=== PATIENT | female | born 1985 | race Caucasian/White ===

== ENCOUNTER 2023-11-24 18:49 | Inpatient (IN) | payer MEDICAID ==
[~2023-11-24] VITALS: Ht 172.7 cm; Wt 2396.3 kg
[2023-11-24] MEDS: ONDANSETRON HCL 4MG TABLET PO ONE (21:15)
[2023-11-24 21:43] LABS: BASOPHILS % 0.5 % (0.0-2.0); HEMOGLOBIN. 12.3 g/dL (12.0-16.0); LYMPHOCYTES % 38.9 % (20.0-50.0); MEAN CORPUSCULAR HEMOGLOBIN 31.4 pg (28.0-32.0); MEAN CORPUSCULAR HGB CONC 33.2 g/dL (31.0-37.0); MEAN CORPUSCULAR VOLUME 94.7 fL (81.0-99.0); MEAN PLATELET VOLUME 8.9 fl (7.4-10.4); MONOCYTES % 6.5 % (2.0-8.0); NEUTROPHILS % 53.1 % (40.0-76.0); PLATELET 232 x1000/uL (130-400); RED BLOOD CELL COUNT 3.91 mill/uL (4.2-5.4); RED CELL DISTRIBUTION WIDTH 14.8 % (11.6-14.6); WHITE BLOOD COUNT 6.5 x1000/uL (4.5-11.0)
[2023-11-24 21:49] LABS: CHLORIDE 103 mEq/L (98-107); SODIUM 137 mEq/L (136-145)
[2023-11-24 21:50] LABS: CALCIUM 9.4 mg/dL (8.7-10.4); CARBON DIOXIDE 29 mEq/L (21-32)
[2023-11-24 21:55] LABS: CREATININE 0.8 mg/dL (0.6-1.0); GLUCOSE 141 mg/dL (70-105); HCG SCREEN NEGATIVE; UREA NITROGEN BLOOD 8 mg/dL (9-23)
[2023-11-24 21:57] LABS: ACETAMINOPHEN < 2 ug/mL (10-30); ALANINE AMINOTRANSFERASE 26 IU/L (10-49); ALBUMIN 4.4 g/dL (3.2-4.8); ASPARTATE AMINOTRANSFERASE 43 IU/L (<34); BILIRUBIN DIRECT 0.2 mg/dL (<=3.0); BILIRUBIN TOTAL 0.8 mg/dL (0.1-1.0); PROTEIN TOTAL 7.5 g/dL (6.0-8.3)
[2023-11-24] MEDS: ARIPIPRAZOLE 5MG TABLET PO ONE (22:30)
[2023-11-25 11:21] LABS: CLARITY URINE TURBID (CLEAR); COLOR URINE DARK YELLOW (YELLOW); GLUCOSE URINE NEGATIVE (NEGATIVE); KETONES URINE 1+ (NEGATIVE); LEUKOCYTE ESTERASE URINE 3+ (NEGATIVE); NITRITE URINE POSITIVE (NEGATIVE); OCCULT BLOOD URINE 2+ (NEGATIVE); PH URINE 6.5 (4.5-8.0); PROTEIN URINE 2+ (NEGATIVE); SPECIFIC GRAVITY URINE 1.028 (1.005-1.030)
[2023-11-25 11:34] LABS: BACTERIA URINE 4+; WBC URINE TNTC /hpf (0-2); YEAST URINE NONE SEEN
[2023-11-25 11:35] LABS: SQUAMOUS EPITHELIAL CELL URINE 2+ /lpf (RARE/1+)
[2023-11-25] MEDS: KETOROLAC 30MG/ML VIAL IM NR (11:35)
[2023-11-25 11:47] LABS: *AMPHETAMINES SCREEN URINE NEGATIVE (NEGATIVE); *BARBITURATES SCREEN URINE NEGATIVE (NEGATIVE); *BENZODIAZEPINES SCREEN URINE NEGATIVE (NEGATIVE); *COCAINE SCREEN URINE NEGATIVE (NEGATIVE); METHADONE URINE SCREEN NEGATIVE (NEGATIVE)
[2023-11-25 11:48] LABS: CANNABINOID URINE SCREEN NEGATIVE (NEGATIVE); ECSTASY MDMA SCREEN URINE NEGATIVE (NEGATIVE); OPIATES URINE SCREEN NEGATIVE (NEGATIVE); PHENCYCLIDINE URINE SCREEN NEGATIVE (NEGATIVE)
[2023-11-25] MEDS: NITROFURANTOIN 100MG M/M CAPSULE PO SCH (14:06)
[2023-11-25] MEDS: ACETAMINOPHEN 325MG TABLET PO ONE (16:20)
[2023-11-26] MEDS: ARIPIPRAZOLE 5MG TABLET PO SCH (11:38)
[2023-11-26] MEDS: OLANZAPINE 5MG TABLET ODT PO ONE (17:38)
[2023-11-26] MEDS: LORAZEPAM 1MG TABLET PO ONE (23:30)
[2023-11-27] MEDS: AZITHROMYCIN 500 MG TABLET PO ONE (10:15)
[2023-11-27] MEDS: CEFTRIAXONE SODIUM 500MG VIAL IM ONE (10:15)
[2023-11-27] MEDS: SODIUM CHLORIDE 0.9% 1,000 ML IV ONE (10:15)
[2023-11-27] MEDS: AZITHROMYCIN 500 MG TABLET PO NR (14:39)
[2023-11-27] MEDS: ACETAMINOPHEN 325MG TABLET PO ONE (14:39)
[2023-11-27] MEDS: CEFTRIAXONE SODIUM 500MG VIAL IM NR (14:39)
[2023-11-27] MEDS: KETOROLAC 30MG/ML VIAL IV NR (15:00)
[2023-11-28] MEDS ORDERED: NALOXONE HCL 0.4MG/ML VIAL IV PRN (10:30)
[2023-11-28] MEDS: HYDROCODONE/ACETAMINOPHEN 10/325MG TABLET PO PRN (10:47)
[2023-11-28] MEDS ORDERED: DOCUSATE SODIUM 100MG CAPSULE PO PRN (18:00)
[2023-11-28] MEDS ORDERED: IPRATROPIUM/ALBUTEROL 0.5-3(2.5)MG/3ML NEB HHN PRN (18:00)
[2023-11-28] MEDS ORDERED: CLONIDINE 0.1MG TABLET PO PRN (18:00)
[2023-11-28] MEDS ORDERED: ACETAMINOPHEN 325MG TABLET PO PRN ×2 (18:00)
[2023-11-28] MEDS: LEVETIRACETAM 500MG PREMIX 100 ML IV SCH (18:24)
[2023-11-28 21:21] VITALS: BP 108/58; PULSE 89; RESP 18; TEMP 37.05852; O2SAT 100
[2023-11-28] MEDS: HYDROCODONE/ACETAMINOPHEN 5/325MG TABLET PO PRN (23:07)
[2023-11-29 01:13] VITALS: BP 103/60; PULSE 93; RESP 18; TEMP 36.78072; O2SAT 94
[2023-11-29 05:16] VITALS: BP 116/62; PULSE 98; RESP 18; TEMP 36.72516; O2SAT 94
[2023-11-29 05:48] VITALS: BP 116/62; PULSE 98; RESP 18; TEMP 36.7516
[2023-11-29 06:29] LABS: CHLORIDE 102 mEq/L (98-107); POTASSIUM 4.3 mEq/L (3.5-5.1); SODIUM 135 mEq/L (136-145)
[2023-11-29 06:30] LABS: CALCIUM 9.3 mg/dL (8.7-10.4); CARBON DIOXIDE 28 mEq/L (21-32)
[2023-11-29 06:35] LABS: CREATININE 0.8 mg/dL (0.6-1.0); GLUCOSE 156 mg/dL (70-105)
[2023-11-29 06:36] LABS: ALBUMIN 3.9 g/dL (3.2-4.8); INR 0.9; LDL CHOLESTEROL 96 mg/dL (5-100); PROTHROMBIN TIME 10.6 sec (9.6-11.0); TRIGLYCERIDE 66 mg/dL (0-150); UREA NITROGEN BLOOD 16 mg/dL (9-23)
[2023-11-29 06:37] LABS: ALANINE AMINOTRANSFERASE 10 IU/L (10-49); ASPARTATE AMINOTRANSFERASE 13 IU/L (<34); BILIRUBIN DIRECT 0.2 mg/dL (<=3.0); CHOLESTEROL 170 mg/dL (<200); HDL CHOLESTEROL 64 mg/dL (>65); PHOSPHORUS 3.8 mg/dL (2.5-4.9); PROTEIN TOTAL 6.7 g/dL (6.0-8.3)
[2023-11-29 06:38] LABS: BILIRUBIN TOTAL 0.6 mg/dL (0.1-1.0)
[2023-11-29 06:40] LABS: AMMONIA < 17 uMol/L (<32)
[2023-11-29 07:02] LABS: BASOPHILS % 0.5 % (0.0-2.0); DIFFERENTIAL COMMENT 0; EOSINOPHILS % 2.1 % (0.0-5.0); HEMATOCRIT. 36.7 % (36.0-48.0); MEAN CORPUSCULAR HEMOGLOBIN 31.2 pg (28.0-32.0); MEAN CORPUSCULAR HGB CONC 32.8 g/dL (31.0-37.0); MEAN CORPUSCULAR VOLUME 95.2 fL (81.0-99.0); MEAN PLATELET VOLUME 8.8 fl (7.4-10.4); MONOCYTES % 8.4 % (2.0-8.0); PLATELET 231 x1000/uL (130-400); RED BLOOD CELL COUNT 3.85 mill/uL (4.2-5.4); RED CELL DISTRIBUTION WIDTH 15.6 % (11.6-14.6); WHITE BLOOD COUNT 6.5 x1000/uL (4.5-11.0)
[2023-11-29] MEDS: ONDANSETRON HCL 4MG/2ML INJ IV PRN (11:20)
[2023-11-29 12:00] VITALS: BP 118/84; PULSE 100; RESP 19; TEMP 36.78072; O2SAT 100
[2023-11-29 20:00] VITALS: BP 107/60; PULSE 74; RESP 18; TEMP 36.61404; O2SAT 98
[2023-11-29] MEDS: MORPHINE SULFATE 2 MG/ML INJ (NOT FOR IM USE) IV NR (23:48)
[2023-11-30] VITALS: BP 95/64; PULSE 95; RESP 18; TEMP 36.33624; O2SAT 95
[2023-11-30 04:00] VITALS: BP 104/64; PULSE 74; RESP 18; TEMP 36.44736; O2SAT 99
[2023-11-30 08:00] VITALS: BP 116/86; PULSE 82; RESP 20; TEMP 36.114; O2SAT 99
[2023-11-30 12:00] VITALS: BP 110/70; PULSE 73; RESP 20; TEMP 36.61404; O2SAT 100
[2023-11-30 13:07] LABS: CHLAMYDIA TRACHOMATIS NAA Negative (Negative); NEISSERIA GONORRHOEAE NAA Negative (Negative)
[2023-11-30] MEDS ORDERED: IOHEXOL-300 100 ML BOTTLE ONE (14:54)
[2023-11-30 16:00] VITALS: BP 108/72; PULSE 80; RESP 20; TEMP 36.16956; O2SAT 99
[2023-11-30 19:00] VITALS: BP 122/88; PULSE 97; RESP 18; TEMP 36.28068; O2SAT 97
[2023-12-01] VITALS: BP 95/64; PULSE 95; RESP 18; TEMP 36.33624; O2SAT 95
[2023-12-01] MEDS: KETOROLAC 30MG/ML VIAL IV PRN (03:01)
[2023-12-01 06:00] VITALS: BP_SYST 106; PULSE 79; RESP 18; TEMP 36.44736; O2SAT 85
[2023-12-01 06:36] VITALS: BP 98/72; PULSE 77; RESP 18; TEMP 36.89184
[2023-12-01 08:00] VITALS: BP 102/68; RESP 18; TEMP 36.61404; O2SAT 84
[2023-12-01 12:00] VITALS: BP 106/74; PULSE 84; RESP 18; TEMP 36.33624; O2SAT 99
[2023-12-01] MEDS ORDERED: LEVO-65 MT (12:25)
[2023-12-01 12:43] VITALS: BP 106/74; PULSE 84; TEMP 97.3; O2SAT 99
[2023-12-01] MEDS: GABAPENTIN 300MG CAPSULE PO SCH (14:00)
[2023-12-01] MEDS: LEVOFLOXACIN 500MG PREMIX 100 ML IV SCH (14:13)
== END 2023-12-01 14:30 | disposition home or self-care (01) | DRG 463 ==
LOC: EDBD 18:49 → ER 18:49 → MICUSO 11-27 14:52 → 5WST 11-28 06:27 → 6WST 11-29 10:07
PROVIDERS: ADMIT Internal Medicine; ATTEND Internal Medicine
PROC: GZ51ZZZ Individual Psychotherapy, Behavioral (ICD-10-PCS; principal; 2023-11-30)
DX: N39.0 Urinary tract infection, site not specified (principal); R45.851 Suicidal ideations; Z20.822 Contact with and (suspected) exposure to COVID-19; F20.9 Schizophrenia, unspecified; F17.210 Nicotine dependence, cigarettes, uncomplicated; Z88.0 Allergy status to penicillin; Z91.199 Patient's noncompliance with other medical treatment and regimen due to unspecified reason
CPT/HCPCS: 36415; 71045; 74177; 76700; 80048; 80061; 80076; 80305; 80307; 80320; 80329; 81003; 82140; 83036; 83735; 84100; 84703; 85025; 87426; 87491; 87591; 99285; J0696; J1885; J1953; J1956; J2270; J2405; J7030; Q0162; Q9967; G0480